=== PATIENT | male | born 1950 | race Caucasian/White ===

== ENCOUNTER 2016-08-18 10:25 | Emergency (ER) | payer MEDICARE, OTHER ==
--- NOTE | ~2016-08-18 | CR7 ---
[facility]. [facility] A Service [facility] RADIOLOGY TEXT RESULTS PATIENT: JANICE MEYER JR LOCATION: SED : 48 UNIT #: [id number] AGE: [address]: David Cortez MD SEX: M ORDER DR: [id number] [place] [address] [id number] E MR#: [id number] Acc #: [id number] NAME: JANICE MEYER JR : 1950 SEX: M STUDY DATE/TIME: 08/18/2016 10:52 UNIT: SED ROOM: STUDY DESCRIPTION: CR Abdomen Single AP View Attending Physician: David Cortez M.D. Ordering Physician: David Cortez M.D. Primary Care Physician: Silvano De La Rosa M.D. MEDICAL IMAGING REPORT This report is preliminary unless electronic signature is present. EXAM KUB HISTORY History supplied is right flank pain. DATE OF STUDY: 08/18/1969 COMPARISON: Comparison is made to a CT of the abdomen 02/22/2015. HISTORY Right-sided flank pain beginning 1 month ago. KUB is obtained. There is neural stimulatory device projected over the left buttock. Gas pattern in the abdomen is normal. No radiopaque calculi are identified in the kidney or course of the ureters. Gas pattern is normal. CONCLUSION Unremarkable abdomen Dictated by... Willie Champagne M.D. THIS IS AN ELECTRONICALLY VERIFIED REPORT Willie Champagne M.D. at 08/18/2016 5:03 PM MIRTHA/robert TD: 08/18/2016 12:38 JOB #: [id number] [facility] A Service [facility] RADIOLOGY TEXT RESULTS PATIENT: JANICE MEYER JR LOCATION: SED : 46 UNIT #: [id number] AGE: [address]: David Cortez MD SEX: M ORDER DR: MEDICAL IMAGING REPORT Page 1 of 1
[2016-08-18 10:25] LABS: URINE SOURCE CLEAN CATCH
[~2016-08-18 10:25] MED LIST: BRAIN HEALTH; CITALOPRAM HBR40 M1; FISH OIL 1,0001 EAC1 PO; FLEXERIL10 MG PO; FLONASE 0.05% N16 G1; IRON 100-VITAM1 EACH PO; LIORESAL10 MG PO; LISINOPRIL; METFORMIN PO; NEURONTIN100 MG PO; TRAMADOL HCL50 M1 PO; VITAMIN B122500 MCG; [UNRECOGNIZED DRUG - OTHER]
[2016-08-18 10:30] LABS: URINE APPEARANCE CLEAR; URINE BILIRUBIN NEG (NEG); URINE BLOOD NEG (NEG); URINE COLOR YELLOW; URINE GLUCOSE NEG (NORM); URINE KETONE NEG (NEG); URINE LEUKOCYTE ESTERASE NEG (NEG); URINE NITRATE NEG (NEG); URINE PROTEIN NEG (NEG); URINE UROBILINOGEN 0.2 MG/DL (NORM)
[2016-08-18 10:31] LABS: MICRO INDICATED? NO
== END 2016-08-18 12:25 | disposition home or self-care (01) ==
LOC: SED 10:25
PROVIDERS: Emergency Medicine
DX: K59.00 Constipation, unspecified (principal); Z79.899 Other long term (current) drug therapy; Z88.0 Allergy status to penicillin; Z90.49 Acquired absence of other specified parts of digestive tract
CPT/HCPCS: 74000; 81003; 99284

== ENCOUNTER 2016-11-28 09:31 | Emergency (ER) | payer MEDICARE, OTHER ==
[~2016-11-28] VITALS: Ht 182.9 cm; Wt 99.8 kg
--- NOTE | ~2016-11-28 | EKG ---
PATIENT: JANICE MEYER UNIT #: [id number] Ventricular Rate: 82 BPM Atrial Rate: 82 BPM P-R Interval: 176 ms QRS Duration: 82 ms Q-T Interval: 368 ms QTC Calculation(Bezet): 429 ms P [place]: 63 degrees Calculated R [place]: 12 degrees Calculated T [place]: 44 degrees Diagnosis Line: Normal sinus rhythm Diagnosis Line: Normal ECG Diagnosis Line: When compared with ECG of 11-APR-2015 00:25, Diagnosis Line: No significant change was found Diagnosis Line: Confirmed by LUCIAN SANCHEZ MD ([id number]) on Diagnosis Line: 11/30/2016 8:55:28 AM INTERPRETING MD: DANIEL HURTADO
--- NOTE | ~2016-11-28 | CR72 ---
[facility] A Service of [facility] & [facility] RADIOLOGY TEXT RESULTS PATIENT: JANICE MEYER JR LOCATION: [facility] : 48 UNIT #: [id number] AGE: [address]: Nathan Cook MD SEX: M ORDER DR: [id number] [facility] [address] [place], [place] [address] [id number] E MR#: [id number] Acc #: [id number] NAME: JANICE MEYER JR : 1950 SEX: M STUDY DATE/TIME: 11/28/2016 10:16 UNIT: [facility] ROOM: STUDY DESCRIPTION: CR Chest Single View Portable Attending Physician: Nathan Cook M.D. Ordering Physician: Nathan Cook M.D. Primary Care Physician: Maurisio Britton M.D. MEDICAL IMAGING REPORT This report is preliminary unless electronic signature is present EXAM Portable chest. INDICATIONS Chest pain and shortness of air starting today. COMPARISON 10/16/2014. FINDINGS This portable view of the chest shows the lungs are clear. Heart size is normal. The stimulator in the upper spine is stable and there is a metal plate in the cervical spine. IMPRESSION No active disease. Dictated by... Chele Barker M.D. THIS IS AN ELECTRONICALLY VERIFIED REPORT Chele Barker M.D. at 11/29/2016 9:35 PM Hu TD: 11/29/2016 00:24 JOB #: [id number] MEDICAL IMAGING REPORT Page 1 of 1 COPY
[2016-11-28 10:32] LABS: BASOPHIL% 0.7 % (0-2.5); EOSINOPHIL# 0.2 X10e3 (0-0.7); EOSINOPHIL% 3.4 % (0.0-7.0); HEMOGLOBIN 12.3 gm/dL (13.0-16.0); LYMPHOCYTE# 1.1 X10e3 (1.0-3.5); LYMPHOCYTE% 23.9 % (17.0-45.0); MEAN CELL VOLUME 91.3 FL (83-96); MEAN CORPUSCULAR HEMOGLOBIN 31.1 PG (28-34); MEAN CORPUSCULAR HGB CONC 34.1 g/dL (30-36); MONOCYTE# 0.4 X10e3 (0-1.0); MONOCYTE% 8.3 % (3.0-12.0); NEUTROPHIL% 63.7 % (40-75); PLATELET COUNT 222 X10e3 (140-420); RED BLOOD COUNT 3.95 X10e (3.90-5.60); RED CELL DISTRIBUTION WIDTH 14.4 % (11.0-15.5); WHITE BLOOD COUNT 4.7 X10e3 (4.0-10.5)
[2016-11-28 10:37] LABS: POC - TROPONIN <0.05 ng/mL (<=0.05)
[2016-11-28 10:38] LABS: DIFF IND NO
[2016-11-28 10:45] LABS: INR 1.1; PARTIAL THROMBOPLASTIN TIME 27.3 SECONDS (23.5-31.3); PROTHROMBIN TIME (PATIENT) 11.7 SECONDS (10.0-11.7)
[2016-11-28 10:51] LABS: ALBUMIN SERUM 4.2 g/dL (3.5-5.0); BILIRUBIN, DIRECT 0.2 mg/dL (0.0-0.2); BILIRUBIN,INDIRECT 0.9 mg/dL (0.0-0.9); BILIRUBIN,TOTAL 1.1 mg/dL (0.2-2.0); BUN/CREATININE RATIO 17.27; CALCIUM SERUM 9.3 mg/dL (8.4-10.2); CREATININE SERUM 1.1 mg/dL (0.6-1.4); GLOM FILT RATE Estimated 68.6 mL/min (>60)
== END 2016-11-28 12:54 | disposition home or self-care (01) ==
LOC: CED 09:31
PROVIDERS: Emergency Medicine
DX: R07.9 Chest pain, unspecified (principal); E11.9 Type 2 diabetes mellitus without complications; I10 Essential (primary) hypertension; Z88.0 Allergy status to penicillin
CPT/HCPCS: 36415; 71010; 80048; 80076; 82553; 83880; 84484; 85025; 85379; 85610; 85730; 93005; 99285